=== PATIENT | female | born 1985 | race Caucasian/White ===

== ENCOUNTER 2017-01-13 01:35 | Inpatient (IN) | payer OTHER ==
[~2017-01-13] VITALS: Ht 165.1 cm; Wt 80.0 kg
[~2017-01-13 01:35] MED LIST: FERROUS GLUCON325 M2 PO; IBUP-1223 PO; ONDA8TAB9 PO; OXYC-302 PO; PNV1TABL4 PO
[2017-01-13] MEDS ORDERED: D5%-LACTATED RINGERS 1,000 ML IV SCH (03:06)
[2017-01-13] MEDS ORDERED: OXYTOCIN 30U/ 0.9% NaCL 500ML 500 ML IV ONE (03:06)
[2017-01-13] MEDS ORDERED: OXYTOCIN 30U/ 0.9% NaCL 500ML 500 ML IV PRN (03:06)
[2017-01-13] MEDS: LACTATED RINGERS 1,000 ML IV SCH ×2 (03:18→03:56)
[2017-01-13] MEDS ORDERED: FENTANYL PF 100 MCG/2ML ONE (03:20)
[2017-01-13] MEDS ORDERED: NEWBORN KIT ONE (03:20)
[2017-01-13] MEDS ORDERED: OXYTOCIN 30U/ 0.9% NaCL 500ML 500 ML ONE ×2 (03:21→06:44)
[2017-01-13] MEDS ORDERED: MISOPROSTOL 200 MCG TABLET ONE (03:21)
[2017-01-13] MEDS ORDERED: FENTANYL PF 100 MCG/2ML IVPush PRN (03:30)
[2017-01-13] MEDS ORDERED: ONDANSETRON 2MG/ML, 2ML IVPush PRN (03:30)
[2017-01-13] MEDS ORDERED: CALCIUM CARBONATE 500 MG TAB.CHEW PO PRN (03:30)
[2017-01-13] MEDS ORDERED: TERBUTALINE 1 MG/ML, 1ML IVPush PRN (03:30)
[2017-01-13] MEDS ORDERED: FENTANYL PF 100 MCG/2ML IV PRN (03:30)
[2017-01-13 03:56] LABS: HEMOGLOBIN 12.8 g/dL (11.7-16.4); WHITE BLOOD COUNT 13.1 x10^3/uL (3.4-10)
[2017-01-13] MEDS ORDERED: BUPIVACAINE/PF 0.25% ONE (04:05)
[2017-01-13] MEDS ORDERED: FENTANYL/BUPIV./NS/PF 250 ML EPIDCONT ONE (04:06)
[2017-01-13] MEDS ORDERED: LACTATED RINGERS 1,000 ML IV SCH (04:07)
[2017-01-13] MEDS ORDERED: FENTANYL/BUPIV./NS/PF 250 ML EPIDCONT SCH (04:07)
[2017-01-13] MEDS ORDERED: EPHEDRINE 50 MG/ML, 1ML IVPush PRN (04:30)
[2017-01-13] MEDS ORDERED: NALOXONE 0.4 MG/ML, 1ML IVPush PRN (04:30)
[2017-01-13] MEDS ORDERED: LACTATED RINGERS 1,000 ML IVBOLUS PRN (04:30)
[2017-01-13] MEDS ORDERED: LIDOCAINE 1%, 20ML ONE (06:44)
[2017-01-13] MEDS ORDERED: HYDROcodone/APAP 5/325 TABLET PO PRN (07:30)
[2017-01-13] MEDS ORDERED: CARBOPROST TROMETHAMINE 250 MCG/ML, 1ML IM PRN (07:30)
[2017-01-13] MEDS ORDERED: ACETAMINOPHEN 325 MG TABLET PO PRN (07:30)
[2017-01-13] MEDS ORDERED: ONDANSETRON 2MG/ML, 2ML IV PRN (07:30)
[2017-01-13] MEDS ORDERED: MISOPROSTOL 200 MCG TABLET PR PRN (07:30)
[2017-01-13] MEDS ORDERED: METHYLERGONOVINE 0.2 MG/ML IM PRN (07:30)
[2017-01-13] MEDS ORDERED: OXYTOCIN 10 UNITS/ML, 1ML IM PRN (07:30)
[2017-01-13] MEDS: PRENATAL VIT/IRON/FA 1 EACH TABLET PO SCH (09:00)
[2017-01-13] MEDS: OXYTOCIN 30U/ 0.9% NaCL 500ML 500 ML IV SCH ×2 (09:21→17:25)
[2017-01-13 10:33] VITALS: BP 120/79
[2017-01-13] MEDS: IBUPROFEN 600 MG TABLET PO PRN ×2 (14:11→20:28)
[2017-01-13 15:18] LABS: HEMATOCRIT 35.4 % (34.6-47.8); HEMOGLOBIN 11.8 g/dL (11.7-16.4); WHITE BLOOD COUNT 16.1 x10^3/uL (3.4-10)
[2017-01-13 15:25] VITALS: BP 115/73
[2017-01-13 19:30] VITALS: BP 116/74
[2017-01-13] MEDS: DOCUSATE 100 MG CAPSULE PO PRN (20:28)
[2017-01-13] MEDS: HYDROcodone/APAP 5/325 TABLET PO PRN (21:14)
[2017-01-14 00:25] VITALS: BP 114/73
[2017-01-14] MEDS: OXYTOCIN 30U/ 0.9% NaCL 500ML 500 ML IV SCH (03:25)
[2017-01-14] MEDS: HYDROcodone/APAP 5/325 TABLET PO PRN (05:40)
[2017-01-14] MEDS: IBUPROFEN 600 MG TABLET PO PRN (05:40)
[2017-01-14] MEDS ORDERED: IBUP-1222 PO (08:14)
[2017-01-14] MEDS ORDERED: HYDR-3240 PO (08:15)
[2017-01-14] MEDS ORDERED: SENN-1 PO (08:16)
[2017-01-14 08:30] VITALS: BP 111/75
[2017-01-14] MEDS: DOCUSATE 100 MG CAPSULE PO PRN (10:02)
[2017-01-14] MEDS: PRENATAL VIT/IRON/FA 1 EACH TABLET PO SCH (10:02)
== END 2017-01-14 14:26 | disposition home or self-care (01) | DRG 775 ==
LOC: LDOP 01:35 → LDIP 03:08 → 2NW 10:51
PROVIDERS: ADMIT Obstetrics & Gynecology; ATTEND Obstetrics & Gynecology
PROC: 10E0XZZ Delivery of Products of Conception, External Approach (ICD-10-PCS; principal; 2017-01-13)
PROC: 0KQM0ZZ Repair Perineum Muscle, Open Approach (ICD-10-PCS; 2017-01-13)
PROC: 10907ZC Drainage of Amniotic Fluid, Therapeutic from Products of Conception, Via Natural or Artificial Opening (ICD-10-PCS; 2017-01-13)
PROC: 3E0R3BZ Introduction of Anesthetic Agent into Spinal Canal, Percutaneous Approach (ICD-10-PCS; 2017-01-13)
PROC: 00HU33Z Insertion of Infusion Device into Spinal Canal, Percutaneous Approach (ICD-10-PCS; 2017-01-13)
DX: O77.0 Labor and delivery complicated by meconium in amniotic fluid (principal); O69.1XX0 Labor and delivery complicated by cord around neck, with compression, not applicable or unspecified; Z3A.40 40 weeks gestation of pregnancy; Z37.0 Single live birth; O70.1 Second degree perineal laceration during delivery
CPT/HCPCS: 36415; 85025; 86850; 86900; J3010; J2590; J7120; J7121